=== PATIENT | female | born 1935 | race Caucasian/White ===

== ENCOUNTER 2016-07-02 12:30 | Emergency (ER) | payer BC, OTHER ==
[~2016-07-02] VITALS: Ht 157.5 cm; Wt 73.6 kg
[~2016-07-02 12:30] MED LIST: CHOL100027 PO; MULT-506 PO; TIMO0.2527 OPB
[2016-07-02 12:40] VITALS: Ht 157.5 cm; Wt 73.6 kg
[2016-07-02] MEDS ORDERED: SODIUM CHLORIDE 0.9% 1000ML 1,000 ML IV STA ×2 (13:05)
--- NOTE | 2016-07-02 13:18 | DIAGNOSTIC IMAGING REPORT ---
CHEST ONE VIEW PORTABLE CLINICAL HISTORY: Altered mental status. Weakness. COMPARISON STUDY: 03/23/2014 FINDINGS: The cardiac and mediastinal contours are normal. There is no evidence of focal pulmonary consolidation. There is no evidence of failure. No pleural effusions are visualized.[ IMPRESSION: No active disease in the chest. Electronically signed by: Edward Gilliam M.D. 07/02/2016 1:16 PM Dictated Date/Time: 07/02/2016 1:15 PM
[2016-07-02 14:01] LABS: BASO % 0.1 %; BASO ABS # 0.01 K/uL (0-0.2); COMPLETE YES; EOS % 0.3 %; HEMATOCRIT 42.3 % (37-47); IG% 0.3 %; LYMPH % 10.9 %; LYMPH ABS # 0.87 K/uL (1.2-3.4); MEAN CELL VOLUME 93.8 fL (80-100); MEAN CORPUSCULAR HEMOGLOBIN 31.3 pg (25-34); MEAN CORPUSCULAR HGB CONC 33.3 g/dl (32-36); MEAN PLATELET VOLUME 9.1 fL (7.4-10.4); MONO % 7.7 %; NEUT % 80.7 %; PLATELET COUNT 297 K/uL (130-400); RED BLOOD COUNT 4.51 M/uL (4.2-5.4); WHITE BLOOD COUNT 7.95 K/uL (4.8-10.8)
[2016-07-02] MEDS ORDERED: TIMO10TA2 PO (14:01)
[2016-07-02 14:24] LABS: ALB/GLOB RATIO 0.9 (0.9-2); ALT/SGPT 14 U/L (12-78); AST/SGOT 12 U/L (15-37); BLOOD UREA NITROGEN 8 mg/dl (7-18); BUN/CREATININE RATIO 11.8 (10-20); CARBON DIOXIDE 31 mmol/L (21-32); CHLORIDE 105 mmol/L (98-107); CREATININE 0.66 mg/dl (0.60-1.20); GLUCOSE 120 mg/dl (70-99); MAGNESIUM 2.5 mg/dl (1.8-2.4); POTASSIUM 3.7 mmol/L (3.5-5.1); SODIUM 141 mmol/L (136-145)
[2016-07-02 14:35] LABS: ALKALINE PHOSPHATASE 45 U/L (45-117); THYROID STIMULATING HORMONE 0.669 uIu/ml (0.300-4.500)
--- NOTE | 2016-07-02 15:19 | EMERGENCY ROOM VISIT NOTE ---
History Report prepared by Jaden: Amita Ruiz Under the Supervision of: Dr. Neymar Arizmendi M.D. First contact with patient: 12:59 Chief Complaint: WEAKNESS Stated Complaint: WEAKNESSS,TREMORS,MUSCLE PAIN, (GETTING WORSE) Nursing Triage Summary: pt granddaughter states, pt hasn't been eating and drinking regularly, also feels that she is weakner than normal.pt states she eats just not regular meals denies dizziness or falls. History of Present Illness The patient is a 80 year old female who presents to the Emergency Room with complaints of worsening generalized weakness that started this morning. The patient's granddaughter checked on her this morning and reports that the patient was complaining of weakness in her arms and legs along with pain that made it difficult for her to get up. The patient did not experience any significant one-sided weakness, but her son states that her left arm is typically weaker than her right because of a previous shoulder surgery. The patient denies fevers, cough, chest pain, shortness of breath, abdominal pain, vomiting, any pain or burning with urination, and diarrhea. The patient's granddaughter states that there has been an ongoing problem with the patient where she does not want to eat or drink. The patient states that she is not hungry or thirsty. The patient's son adds that he thinks that she is dehydrated. The patient's son also adds that the patient has a history of a heart murmur. Source of History: patient, family (granddaughter, son) Onset: this morning Position: other (global) Quality: other (generalized weakness) Timing: worsening Associated Symptoms: No SOB, No abdominal pain, No chest pain, No cough, No diarrhea, No fevers, No urinary symptoms, No vomiting Note: generalized pain Review of Systems See HPI for pertinent positives & negatives. A total of 10 systems reviewed and were otherwise negative. Past Medical & Surgical Medical Problems: (1) Hemothorax, right (2) Hemothorax, traumatic (3) Leg swelling (4) Pneumonia (5) Rib fracture Surgical Problems: (1) Hx of rotator cuff surgery Family History No pertinent family history Social History Smoking Status: Never Smoker Alcohol Use: none Drug Use: none Marital Status: Housing Status: lives with family Occupation Status: retired Current/Historical Medications Scheduled Cholecalciferol (Vitamin D 1000 Unit), 1,000 INTER.UNIT PO QAM Multivitamin (Multivitamin), 1 TAB PO QAM Miscellaneous Medications Timolol (Blocadren), 10 MG PO Allergies Coded Allergies: Sulfa Drugs (Verified Allergy, Unknown, 07/02/16) Physical Exam Vital Signs Date Time Temp Pulse Resp B/P Pulse Ox O2 Delivery O2 Flow Rate FiO2 07/02/16 17:45 36.8 78 18 152/76 98 07/02/16 15:21 82 18 159/62 97 Room Air 07/02/16 14:09 81 18 134/62 96 Room Air 07/02/16 12:40 36.8 80 20 165/73 96 Room Air Physical Exam GENERAL: Patient is in no acute distress. HEENT: No acute trauma, normocephalic atraumatic, mucous membranes moist, no nasal congestion, no scleral icterus. NECK: No stridor, no adenopathy, no meningismus, trachea is midline. LUNGS: Clear to auscultation bilaterally, no wheeze, no rhonchi, breath sounds equal. HEART: Grade 3/6 systolic murmur, regular rate and rhythm. ABDOMEN: Soft, nontender, bowel sounds positive, no hernias, no peritonitis. EXTREMITIES: No cyanosis or edema, full range of motion of all the joints without pain or difficulty, no signs for acute trauma. NEUROLOGIC: Oriented x 3, no acute motor or sensory deficits, no focal weakness , tremor noted, no pronator drift or cerebellar dysfunction, no speech slur or facial droop. SKIN: No rash, no jaundice, no diaphoresis. Medical Decision & Procedures ER Provider Diagnostic Interpretation: X-ray results as stated below per interpretation by me and the radiologist: CHEST ONE VIEW PORTABLE IMPRESSION: No active disease in the chest. Electronically signed by: Edward Gilliam M.D. 07/02/2016 1:16 PM Dictated Date/Time: 07/02/2016 1:15 PM Laboratory Results 07/02/16 13:25 Red Blood Count 4.51, Mean Corpuscular Volume 93.8, Mean Corpuscular Hemoglobin 31.3, Mean Corpuscular Hemoglobin Concent 33.3, Mean Platelet Volume 9.1, Neutrophils (%) (Auto) 80.7, Lymphocytes (%) (Auto) 10.9, Monocytes (%) (Auto) 7.7, Eosinophils (%) (Auto) 0.3, Basophils (%) (Auto) 0.1, Neutrophils # (Auto) 6.42, Lymphocytes # (Auto) 0.87, Monocytes # (Auto) 0.61, Eosinophils # (Auto) 0.02, Basophils # (Auto) 0.01 07/02/16 13:25 Test 07/02/16 13:25 07/02/16 15:25 White Blood Count 7.95 K/uL (4.8-10.8) Red Blood Count 4.51 M/uL (4.2-5.4) Hemoglobin 14.1 g/dL (12.0-16.0) Hematocrit 42.3 % (37-47) Mean Corpuscular Volume 93.8 fL (80-100) Mean Corpuscular Hemoglobin 31.3 pg (25-34) Mean Corpuscular Hemoglobin Concent 33.3 g/dl (32-36) Platelet Count 297 K/uL (130-400) Mean Platelet Volume 9.1 fL (7.4-10.4) Neutrophils (%) (Auto) 80.7 % Lymphocytes (%) (Auto) 10.9 % Monocytes (%) (Auto) 7.7 % Eosinophils (%) (Auto) 0.3 % Basophils (%) (Auto) 0.1 % Neutrophils # (Auto) 6.42 K/uL (1.4-6.5) Lymphocytes # (Auto) 0.87 K/uL (1.2-3.4) Monocytes # (Auto) 0.61 K/uL (0.11-0.59) Eosinophils # (Auto) 0.02 K/uL (0-0.5) Basophils # (Auto) 0.01 K/uL (0-0.2) RDW Standard Deviation 46.5 fL (36.4-46.3) RDW Coefficient of Variation 13.5 % (11.5-14.5) Immature Granulocyte % (Auto) 0.3 % Immature Granulocyte # (Auto) 0.02 K/uL (0.00-0.02) Anion Gap 5.0 mmol/L (3-11) Est Creatinine Clear Calc Drug Dose 64.9 ml/min Estimated GFR () 97.4 Estimated GFR (Non- 84.0 BUN/Creatinine Ratio 11.8 (10-20) Calcium Level 9.0 mg/dl (8.5-10.1) Magnesium Level 2.5 mg/dl (1.8-2.4) Total Bilirubin 0.5 mg/dl (0.2-1) Aspartate Amino Transf (AST/SGOT) 12 U/L (15-37) Alanine Aminotransferase (ALT/SGPT) 14 U/L (12-78) Alkaline Phosphatase 45 U/L (45-117) Total Creatine Kinase 45 U/L (26-192) Troponin I < 0.015 ng/ml (0-0.045) Total Protein 7.4 gm/dl (6.4-8.2) Albumin 3.5 gm/dl (3.4-5.0) Globulin 3.9 gm/dl (2.5-4.0) Albumin/Globulin Ratio 0.9 (0.9-2) Thyroid Stimulating Hormone (TSH) 0.669 uIu/ml (0.300-4.500) Urine Color YELLOW Urine Appearance CLEAR (CLEAR) Urine pH 7.5 (4.5-7.5) Urine Specific [place] 1.008 (1.000-1.030) Urine Protein NEG (NEG) Urine Glucose (UA) NEG (NEG) Urine Ketones NEG (NEG) Urine Occult Blood NEG (NEG) Urine Nitrite NEG (NEG) Urine Bilirubin NEG (NEG) Urine Urobilinogen NEG (NEG) Urine Leukocyte Esterase MODERATE (NEG) Urine WBC (Auto) 1-5 /hpf (0-5) Urine RBC (Auto) 0-4 /hpf (0-4) Urine Hyaline Casts (Auto) 0 /lpf (0-5) Urine Epithelial Cells (Auto) 10-20 /lpf (0-5) Urine Bacteria (Auto) NEG (NEG) Laboratory results reviewed by me. Medications Administered Medications (Trade) Dose Ordered Sig/Rosa M Route Start Time Stop Time Status Last Admin Dose Admin Sodium Chloride 1,000 ml @ 999 mls/hr Q1H1M STAT IV 07/02/16 13:05 07/02/16 14:05 DC 07/02/16 13:25 999 MLS/HR Sodium Chloride 1,000 ml @ 200 mls/hr Q5H STAT IV 07/02/16 13:05 07/02/16 18:08 DC 07/02/16 14:08 200 MLS/HR Sodium Chloride (Nss 500ml) 500 ml @ 999 mls/hr Q31M STAT IV 07/02/16 15:52 07/02/16 16:22 DC 07/02/16 15:52 999 MLS/HR ECG Indication: weakness Rate (beats per minute): 76 Rhythm: normal sinus Findings: no acute ischemic change, no ectopy, other (LVH) ED Course 1300: The patient was evaluated in room B3. A complete history and physical exam was performed. 1305: Ordered Sodium Chloride 1000 ml @ 200 mls/hr IV, Sodium Chloride 1000 ml @ 999 mls/hr IV 1522: I reassessed the patient. I also updated the patient and her family. 1552: Ordered Sodium Chloride 500 ml @ 999 mls/hr IV 1701: Reevaluated the patient. Discussed results and discharge instructions: she verbalized understanding and agreement. The patient is ready for discharge. Medical Decision Differential diagnoses considered include dehydration, electrolyte imbalance, anemia, stroke, UTI. There is no leukocytosis or concerning anemia. No significant electrolyte abnormality, kidney failure or hepatitis. The patient appears to be in a euthyroid state. Urinalysis does not show any obvious infection, urine culture is pending. EKG shows a normal sinus rhythm with LVH, no acute ischemia. Cardiac enzyme testing times one is not consistent with acute cardiac injury. The patient presents with weakness, the weakness is generalized. There were no findings of stroke by exam, she was not febrile or toxic. The patient received IV saline, she is doing markedly better. She does feel comfortable with discharge, the family is comfortable as well. Patient was encouraged to stay better hydrated and to follow with her doctor later this week. Impression Primary Impression: Weakness Additional Impression: Dehydration Scribe Attestation The scribe's documentation has been prepared under my direction and personally reviewed by me in its entirety. I confirm that the note above accurately reflects all work, treatment, procedures, and medical decision making performed by me. Departure Information Dispostion Home / Self-Care Referrals No Doctor, Assigned (PCP) Forms HOME CARE DOCUMENTATION FORM, IMPORTANT VISIT INFORMATION Patient Instructions My [facility] Additional Instructions stay well hydrated see yohannes faye for a recheck this week return if worsening lab testing was ok today Problem Qualifiers
[2016-07-02] MEDS ORDERED: SODIUM CHLORIDE 0.9% 500ML 500 ML IV STA (15:52)
[2016-07-02 16:34] LABS: URINE APPEARANCE CLEAR (CLEAR); URINE BILIRUBIN NEG (NEG); URINE COLOR YELLOW; URINE NITRITE NEG (NEG); URINE PH 7.5 (4.5-7.5); URINE SPECIFIC GRAVITY 1.008 (1.000-1.030); UROBILINOGEN NEG (NEG); ZZUR CULT IF INDIC CLEAN CATCH NO
[2016-07-02 16:45] LABS: MANUAL MICROSCOPIC REQUIRED? NO; REVIEW REQ? NO
[2016-07-02 17:45] VITALS: BP 152/76; PULSE 78; TEMP 36.8; O2SAT 98
== END 2016-07-02 17:46 | disposition home or self-care (01) ==
LOC: C.EDB 12:32
DX: R53.1 Weakness (principal); E86.0 Dehydration; Z87.81 Personal history of (healed) traumatic fracture; Z87.828 Personal history of other (healed) physical injury and trauma; Z98.890 Other specified postprocedural states; Z88.2 Allergy status to sulfonamides

== ENCOUNTER → 2017-03-13 | Outpatient (CLI) | payer BC ==
[~2017-03-13] MED LIST changes: -TIMO0.2527 OPB; +TIMO10TA2 PO
[2017-03-13 17:39] LABS: BASO % 0.3 %; BASO ABS # 0.02 K/uL (0-0.2); EOS % 1.7 %; EOS ABS # 0.11 K/uL (0-0.5); HEMOGLOBIN 14.7 g/dL (12.0-16.0); IG# 0.01 K/uL (0.00-0.02); LYMPH % 21.5 %; LYMPH ABS # 1.43 K/uL (1.2-3.4); MEAN CELL VOLUME 93.6 fL (80-100); MEAN CORPUSCULAR HEMOGLOBIN 30.6 pg (25-34); MEAN CORPUSCULAR HGB CONC 32.7 g/dl (32-36); MEAN PLATELET VOLUME 9.8 fL (7.4-10.4); NEUT % 67.3 %; NEUT ABS # 4.47 K/uL (1.4-6.5); PLATELET COUNT 288 K/uL (130-400); RED CELL DISTRIBUTION WIDTH CV 13.8 % (11.5-14.5); RED CELL DISTRIBUTION WIDTH SD 47.3 fL (36.4-46.3); WHITE BLOOD COUNT 6.64 K/uL (4.8-10.8)
[2017-03-13 19:21] LABS: ALBUMIN 3.9 gm/dl (3.4-5.0); ALKALINE PHOSPHATASE 41 U/L (45-117); AST/SGOT 20 U/L (15-37); BLOOD UREA NITROGEN 7 mg/dl (7-18); CALCIUM 9.5 mg/dl (8.5-10.1); CARBON DIOXIDE 28 mmol/L (21-32); CREATININE 0.57 mg/dl (0.60-1.20); GLUCOSE 82 mg/dl (70-99); SODIUM 138 mmol/L (136-145); TOTAL PROTEIN 8.1 gm/dl (6.4-8.2)
[2017-03-13 19:29] LABS: ALT/SGPT 19 U/L (12-78)
== END | disposition home or self-care (01) ==
LOC: C.LABPVFM 12:20
PROVIDERS: ATTEND Nurse Practitioner Family
DX: I35.8 Other nonrheumatic aortic valve disorders (principal); R60.0 Localized edema; R41.3 Other amnesia

== ENCOUNTER 2020-01-23 18:01 | Observation (INO) ==
[2020-01-23] MEDS ORDERED: SODIUM CHLORIDE 0.9% 1000ML 500 ML IV ONE (18:25)
--- NOTE | 2020-01-23 18:31 | Emergency Department Note ---
History of Present Illness General Chief complaint: Urinary Symptoms Stated complaint: ALOC, WEAKNESS Time Seen by Provider: 01/23/20 18:17 Source: patient, family (Son who I talked to both on the phone and at bedside he arrived), EMS, RN notes reviewed and old records reviewed Mode of arrival: EMS Limitations: no limitations History of Present Illness This patient is brought in by EMS from [facility] after apparently being more confused and was cool and clammy. She has a history of a recent ESBL. She was seen here 9 days ago and given a dose of fosfomycin. The patient has baseline dementia so it is difficult to get any history although she denies any complaints. She is alert to person but not place or date. She denies chest pain or shortness of breath or cough or urinary symptoms or abdominal pain. She does follow commands. But definitely has some confusion which appears to be baseline. I talked to the her son at length who arrived and was at the bedside. He tells me she was here on 01 13 and [facility] she is actually been on quarantine and away from the general population due to her recent hospital visit. She has had no cough or shortness of breath or any Covid-like symptoms. Home Medications Home Medications Medication Instructions Recorded Confirmed Type melatonin 3 mg tablet 3 mg PO HS 08/17/18 01/23/20 History acetaminophen 325 mg tablet 650 mg PO TID #60 tab MDD 3 GMS 02/26/19 01/23/20 History APAP/24 HOURS donepezil 10 mg PO HS 01/14/20 01/23/20 History quetiapine 100 mg PO HS 01/14/20 01/23/20 History acetaminophen 325 mg PO Q4H PRN MDD 3 GMS 01/23/20 01/23/20 History APAP/24 HOURS cyanocobalamin (vitamin B-12) 2,000 mcg PO DAILY 01/23/20 01/23/20 History [Vitamin B-12] quetiapine 100 mg PO QAM 01/23/20 01/23/20 History sertraline 100 mg PO DAILY 01/23/20 01/23/20 History trazodone 50 mg PO HS 01/23/20 01/23/20 History Allergies Allergy/AdvReac Type Severity Reaction Status Date / Time Sulfa (Sulfonamide Allergy Unknown Unknown Verified 01/23/20 21:02 Antibiotics) Past Med/Surg History Medical History Achilles tendonitis Anxiety Stable/controlled. continue with current management. Aortic stenosis Aortic valve sclerosis Bilateral edema of lower extremity Dementia with behavioral disturbance Stable/controlled. Continue with current management. Depression Controlled/stable at this time. no SI/HI. Pt tolerating meds well without significant side effects. Continue with current management. Esophageal reflux Glaucoma Hemothorax, right Hemothorax, traumatic Knee arthropathy Leg swelling LVH (left ventricular hypertrophy) Osteopenia Osteoporosis Plantar fasciitis, left Pneumonia Rib fracture Senile dementia Sleep disturbances Solitary pulmonary nodule Urge incontinence of urine Vitamin D deficiency Surgical History History of arthroplasty of right knee Hx of rotator cuff surgery Family History Father Unknown family medical history Social History Smoking Status: Never smoker Preferred Language: Croatian Current Living Situation: Personal Care Facility Current Living Situation Comment: [facility] at [facility] Feels Safe at Home: Yes Review of Systems Unobtainable due to cognitive status Physical Exam Vital Signs Vital Signs - 24 hr 01/23/20 17:56 01/23/20 18:26 01/23/20 19:26 Temperature 36.8 C Temperature Source Oral Pulse Rate 74 Pulse Rate [Right Finger] 71 Pulse Rhythm Regular Pulse Rhythm [Right Finger] Regular Pulse Strength Normal Respiratory Rate 20 18 Respiratory Effort / Characteristics Non-Labored Spontaneous Normal for Patient Respiratory Depth Normal Respiratory Pattern Regular Blood Pressure 163/71 H Blood Pressure [Right Arm] 159/95 H Blood Pressure Mean 101 Blood Pressure Mean [Right Arm] 116 Blood Pressure Position Lying Blood Pressure Position [Right Arm] Pulse Oximetry 98 98 98 Oxygen Delivery Method Room Air Room Air Room Air Sepsis Recent Fever Within 48 Hours No Sepsis New/Unexplained Change in Mental Status N/A Sepsis Action Taken by Nursing No Action Required 01/23/20 20:17 01/23/20 21:39 Temperature Temperature Source Pulse Rate Pulse Rate [Right Finger] 76 67 Pulse Rhythm Pulse Rhythm [Right Finger] Regular Regular Pulse Strength Respiratory Rate 20 20 Respiratory Effort / Characteristics Non-Labored Non-Labored Respiratory Depth Normal Normal Respiratory Pattern Blood Pressure Blood Pressure [Right Arm] 136/73 137/70 Blood Pressure Mean Blood Pressure Mean [Right Arm] 94 92 Blood Pressure Position Blood Pressure Position [Right Arm] Lying Pulse Oximetry 96 97 Oxygen Delivery Method Room Air Room Air Sepsis Recent Fever Within 48 Hours Sepsis New/Unexplained Change in Mental Status Sepsis Action Taken by Nursing General: Well developed well nourished older female who has baseline dementia but appears awake and alert follows commands is alert to person only. In no acute distress, breathing comfortably on room air. Normal speech HEENT: Normal cephalic atraumatic. Pupils are equal round and reactive to light. Extraocular movements are intact. Oropharynx is pink with moist mucous membranes. No swelling of the mouth lips or tongue. Neck: Supple with a midline trachea. No meningeal signs or stiffness, no JVD or bruits. No Stridor. Chest: Clear to auscultation bilaterally. No wheezes or rhonchi. No increased work of breathing. Heart: Regular rate and rhythm. There is a 3-6 systolic murmur. Abdomen: Soft nontender, nondistended without rebound guarding or rigidity. Extremities: No cyanosis clubbing or edema. No calf tenderness or assymetry Spine/Back. Non tender to palpation. No CVA tenderness Skin: Good turgor without rashes. Neurologic exam: Cranial nerves two through 12 are intact. Motor and sensation are intact and symmetrical throughout. Course Administered Medications Discontinued Medications Sodium Chloride (Nss 1000ml) 500 mls @ 999 mls/hr IV .Q31M ONE Stop: 01/23/20 18:55 Last Admin: 01/23/20 19:34 Dose: 999 mls/hr Documented by: [id number] Sodium Chloride (Nss 1000ml) 1,000 mls @ 999 mls/hr IV .Q1H1M ONE Stop: 01/23/20 20:31 Last Admin: 01/23/20 19:35 Dose: 999 mls/hr Documented by: [id number] Piperacillin Sod/Tazobactam Sod (Zosyn) 4.5 gm in 120 mls @ 240 mls/hr IV NOW ONE Stop: 01/23/20 21:06 Last Admin: 01/23/20 20:52 Dose: 240 mls/hr Documented by: [id number] Critical Care Time Critical Care Time: Yes Total Critical Care Time: 30 Due to the altered mental status, concern for sepsis, need for IV fluids IV antibiotics, discussion with the family and frequent reassessment, I have personally spent greater than 30 minutes of critical care time in the direct management of this patient. This includes bedside care, interpretation of diagnostic studies, and testing, discussion with consultants, patient, and family members, and other required patient management activities. This 30 minutes is in excess of all separately billable procedures. Medical Decision Making Differential Diagnosis Sepsis, UTI, dehydration, Covid, electrolyte or metabolic abnormalities, CVA. Medical Records Attestation: I reviewed the patient's medical records. Home Medications Current Medication List: was personally reviewed by me Laboratory Data Attestation: I reviewed the patient's lab results. Result diagrams: 01/23/20 18:33 01/23/20 18:33 Lab Results 01/23/20 01/23/20 01/23/20 Range/Units 18:33 18:33 18:33 WBC 11.34 H (4.8-10.8) K/uL RBC 4.81 (4.2-5.4) M/uL Hgb 15.3 (12.0-16.0) g/dL Hct 46.0 (37-47) % MCV 95.6 (80-100) fL MCH 31.8 (25-34) pg MCHC 33.3 (32-36) g/dL RDW Std Deviation 45.1 (36.4-46.3) fL RDW Coeff of Petr 13.0 (11.5-14.5) % Plt Count 308 (130-400) K/uL MPV 10.1 (7.4-10.4) fL Immature Gran % (Auto) 0.2 % Neut % (Auto) 89.1 % Lymph % (Auto) 8.3 % [place] % (Auto) 2.3 % Eos % (Auto) 0.0 % Baso % (Auto) 0.1 % Neut # (Auto) 10.11 H (1.4-6.5) K/uL Lymph # (Auto) 0.94 L (1.2-3.4) K/uL [place] # (Auto) 0.26 (0.11-0.59) K/uL Eos # (Auto) 0.00 (0-0.5) K/uL Baso # (Auto) 0.01 (0-0.2) K/uL Immature Gran # (Auto) 0.02 (0.00-0.02) K/uL PT 11.0 (9.0-12.0) Seconds INR 1.0 (0.9-1.1) APTT 26.0 (21.0-31.0) Seconds PTT Ratio 0.9 Sodium (136-145) mmol/L Potassium (3.5-5.1) mmol/L Chloride (98-107) mmol/L Carbon Dioxide (21-32) mmol/L Anion Gap (3-11) BUN (7-18) mg/dl Creatinine (0.6-1.2) mg/dl Est Cr Clr Drug Dosing ml/min Est GFR ( Amer) Est GFR (Non-Af Amer) BUN/Creatinine Ratio (10-20) Glucose (70-99) mg/dl Lactate (0.4-2.0) mmol/L Calcium (8.5-10.1) mg/dl Magnesium (1.8-2.4) mg/dl Total Bilirubin (0.2-1) mg/dl AST (15-37) U/L ALT (12-78) U/L Alkaline Phosphatase (45-117) U/L Troponin I (0-0.045) ng/ml Total Protein (6.4-8.2) gm/dl Albumin (3.4-5.0) gm/dl Globulin (2.5-4.0) gm/dl Albumin/Globulin Ratio (0.9-2) Procalcitonin < 0.05 (0-0.5) ng/ml Urine Color Urine Appearance (Clear) Urine pH (4.5-7.5) Ur Specific Ashley (1.000-1.030) Urine Protein (Negative) Urine Glucose (UA) (Negative) Urine Ketones (Negative) Urine Blood (Negative) Urine Nitrite (Negative) Urine Bilirubin (Negative) Urine Urobilinogen (Negative) Ur Leukocyte Esterase (Negative) Urine WBC (Auto) (0-5) /hpf Urine RBC (Auto) (0-4) /hpf U Hyaline Cast (Auto) (0-5) /lpf U Epithel Cells (Auto) (0-5) /lpf Urine Bacteria (Auto) (Negative) 1101/23/20 01/23/20 Range/Units 18:33 18:53 19:25 WBC (4.8-10.8) K/uL RBC (4.2-5.4) M/uL Hgb (12.0-16.0) g/dL Hct (37-47) % MCV (80-100) fL MCH (25-34) pg MCHC (32-36) g/dL RDW Std Deviation (36.4-46.3) fL RDW Coeff of Petr (11.5-14.5) % Plt Count (130-400) K/uL MPV (7.4-10.4) fL Immature Gran % (Auto) % Neut % (Auto) % Lymph % (Auto) % [place] % (Auto) % Eos % (Auto) % Baso % (Auto) % Neut # (Auto) (1.4-6.5) K/uL Lymph # (Auto) (1.2-3.4) K/uL [place] # (Auto) (0.11-0.59) K/uL Eos # (Auto) (0-0.5) K/uL Baso # (Auto) (0-0.2) K/uL Immature Gran # (Auto) (0.00-0.02) K/uL PT (9.0-12.0) Seconds INR (0.9-1.1) APTT (21.0-31.0) Seconds PTT Ratio Sodium 139 (136-145) mmol/L Potassium 3.7 (3.5-5.1) mmol/L Chloride 109 H (98-107) mmol/L Carbon Dioxide 26 (21-32) mmol/L Anion Gap 4.0 (3-11) BUN 9 (7-18) mg/dl Creatinine 0.70 (0.6-1.2) mg/dl Est Cr Clr Drug Dosing 57.4 ml/min Est GFR ( Amer) 92.9 Est GFR (Non-Af Amer) 80.1 BUN/Creatinine Ratio 12.9 (10-20) Glucose 135 H (70-99) mg/dl Lactate 2.3 H* (0.4-2.0) mmol/L Calcium 9.4 (8.5-10.1) mg/dl Magnesium 2.4 (1.8-2.4) mg/dl Total Bilirubin 0.4 (0.2-1) mg/dl AST 19 (15-37) U/L ALT 27 (12-78) U/L Alkaline Phosphatase 48 (45-117) U/L Troponin I < 0.015 (0-0.045) ng/ml Total Protein 8.5 H (6.4-8.2) gm/dl Albumin 4.1 (3.4-5.0) gm/dl Globulin 4.4 H (2.5-4.0) gm/dl Albumin/Globulin Ratio 0.9 (0.9-2) Procalcitonin (0-0.5) ng/ml Urine Color Yellow Urine Appearance Clear (Clear) Urine pH 6.0 (4.5-7.5) Ur Specific Ashley 1.022 (1.000-1.030) Urine Protein Negative (Negative) Urine Glucose (UA) Negative (Negative) Urine Ketones 1+ H (Negative) Urine Blood Negative (Negative) Urine Nitrite Positive A (Negative) Urine Bilirubin Negative (Negative) Urine Urobilinogen Negative (Negative) Ur Leukocyte Esterase 1+ H (Negative) Urine WBC (Auto) 10-30 H (0-5) /hpf Urine RBC (Auto) 0-4 (0-4) /hpf U Hyaline Cast (Auto) 5-10 H (0-5) /lpf U Epithel Cells (Auto) 5-10 H (0-5) /lpf Urine Bacteria (Auto) 4+ H (Negative) Imaging Data Attestation: I personally reviewed and interpreted this imaging study as follows: My Impression: Chest x-rayper my interpretationno acute infiltrate, failure, pneumothorax seen Radiologist's Impression: XR chest 1V portable HISTORY: SEPSIS COMPARISON: Chest 11/28/2017. FINDINGS: There are low lung volumes. No pneumothorax. The heart is mildly enlarged. There is peripheral and bibasilar interstitial thickening most pronounced within the left lung base. This is likely chronic. No evidence for pulmonary edema. No new focal lung consolidations to suggest pneumonia. IMPRESSION: Cardiomegaly and mild chronic interstitial thickening. No focal lung consolidations to suggest pneumonia. ECG Data Attestation: I personally reviewed and interpreted this ECG as follows: Indication: + altered mental status Rate (beats per minute): 67 Rhythm: + normal sinus ECG [place]: + Normal ECG ST segments: + Normal ST segments ECG Findings: + LVH Comparison ECG Date: from (12/06/17) Change: the following changes noted (t waves anterior improved) MDM Narrative This patient is brought in by EMS after apparently having altered level co nscious being cold clammy she has stable vital signs and baseline dementia. She has no focal neurologic deficits on my exam besides having some baseline dementia. Reviewing her record she has a recent ESBL. A full sepsis type work- up was obtained she was given a IV fluid bolus she was placed on a hunter EKG chest x-ray urinalysis and culture as well as blood cultures lactic acid were obtained. She was reassessed frequently. There is no reported exposure to Covid or cough or respiratory symptoms. Her white count is mildly elevated lactic acid is also mildly elevated. She did receive IV fluids. She has no significant electrolyte or metabolic abnormalities. She has nothing to suggest liver, gallbladder, or pancreas disease. Her chest x-ray does not suggest pneumonia or CHF. No pneumothorax. EKG does not suggest cardiac disease nor do her symptoms. Her troponin was negative. Her procalcitonin was also negative which would also go against a bacterial infection. Her lactic acid was mildly elevated she has received fluid resuscitation I added a second liter IV. Her urinalysis is very suspicious for UTI, she has a history of ESBL judging from the previous cultures. I did give her Zosyn which it was sensitive to 4.5 g IV. I talked to her son and he agrees with the plan I have talked with Dr. Barnett and the [facility] team will be admitting her for sepsis altered mental status and resistant E. coli UTI suspected/ Continuous cardiac monitoring: An order was placed in the EMR for continuous cardiac monitoring. She was found to be in normal sinus rhythm with a pulse of 67. Impression & Plan Sepsis, Altered mental status, Dementia, Acute UTI (urinary tract infection), E levated lactic acid level Discharge Plan Visit Data Chief Complaint: Urinary Symptoms Stated Complaint: ALOC, WEAKNESS ED Provider: Noel Morgan Discharge Problem: Sepsis, Altered mental status, Dementia, Acute UTI (urinary tract infection), Elevated lactic acid level Patient Disposition: Admitted As Inpatient Forms Stand Alone Forms: My [facility] Prescriptions Prescriptions: No Action acetaminophen 325 mg tablet 650 mg PO TID MDD 3 GMS APAP/24 HOURS Qty: 60 RF: 0 melatonin 3 mg tablet 3 mg PO HS RF: 0 donepezil 10 mg tablet 10 mg PO HS RF: 0 quetiapine 100 mg tablet 100 mg PO HS RF: 0 quetiapine 25 mg tablet 100 mg PO QAM RF: 0 cyanocobalamin (vitamin B-12) [Vitamin B-12] 1,000 mcg Tablet 2,000 mcg PO DAILY RF: 0 sertraline 50 mg tablet 100 mg PO DAILY RF: 0 trazodone 50 mg tablet 50 mg PO HS RF: 0 acetaminophen 325 mg Tablet 325 mg PO Q4H MDD 3 GMS APAP/24 HOURS PRN (Reason: Pain, Mild) RF: 0 Referrals Referrals: Vandana Amos MD [Primary Care Provider] - Discharge Problem: Sepsis Qualifiers: Sepsis type: sepsis due to unspecified organism Sepsis acute organ dysfunction status: unspecified Qualified Code(s): A41.9 - Sepsis, unspecified organism Altered mental status Qualifiers: Altered mental status type: unspecified Qualified Code(s): R41.82 - Altered mental status, unspecified Dementia Qualifiers: Dementia type: unspecified type Dementia behavioral disturbance: with behavioral disturbance Qualified Code(s): F03.91 - Unspecified dementia with behavioral disturbance
[2020-01-23 18:43] LABS: Basophils # (auto) 0.01 K/uL (0-0.2); Basophils % (auto) 0.1 %; Hemoglobin 15.3 g/dL (12.0-16.0); Immature Granulocytes # (auto) 0.02 K/uL (0.00-0.02); Immature Granulocytes % (auto) 0.2 %; Lymphocytes # (auto) 0.94 K/uL (1.2-3.4); Lymphocytes % (auto) 8.3 %; Mean Corpuscular Hemoglobin 31.8 pg (25-34); Mean Corpuscular Hgb Conc 33.3 g/dL (32-36); Mean Corpuscular Volume 95.6 fL (80-100); Mean Platelet Volume 10.1 fL (7.4-10.4); Monocytes # (auto) 0.26 K/uL (0.11-0.59); Monocytes % (auto) 2.3 %; Neutrophils # (auto) 10.11 K/uL (1.4-6.5); Neutrophils % (auto) 89.1 %; Platelet Count 308 K/uL (130-400); RDW Standard Deviation 45.1 fL (36.4-46.3); Red Blood Count 4.81 M/uL (4.2-5.4); White Blood Count 11.34 K/uL (4.8-10.8)
--- NOTE | 2020-01-23 18:56 | XRay Report ---
XR chest 1V portable HISTORY: SEPSIS COMPARISON: Chest 11/28/2017. FINDINGS: There are low lung volumes. No pneumothorax. The heart is mildly enlarged. There is periphe ral and bibasilar interstitial thickening most pronounced within the left lung base. This is likely c hronic. No evidence for pulmonary edema. No new focal lung consolidations to suggest pneumonia. IMPRESSION: Cardiomegaly and mild chronic interstitial thickening. No focal lung consolidations to suggest pneumo toney. ACT 112: Negative or not required by law. Electronically signed by: Ceasar Guerrero M.D. 01/23/2020 6:54 PM
[2020-01-23 19:03] LABS: Alanine Aminotransferase 27 U/L (12-78); Albumin Level 4.1 gm/dl (3.4-5.0); Aspartate Aminotransferase 19 U/L (15-37); BUN Creatinine Ratio 12.9 (10-20); Blood Urea Nitrogen 9 mg/dl (7-18); Calcium 9.4 mg/dl (8.5-10.1); Carbon Dioxide 26 mmol/L (21-32); Chloride 109 mmol/L (98-107); Creatinine Clr Calc Pharmacy 57.4 ml/min; Est GFR (African American) 92.9; Est GFR (Non-African American) 80.1; Glucose 135 mg/dl (70-99); Magnesium 2.4 mg/dl (1.8-2.4); Partial Thromboplastin Ratio 0.9; Potassium 3.7 mmol/L (3.5-5.1); Sodium 139 mmol/L (136-145)
[2020-01-23 19:08] LABS: Albumin Globulin Ratio 0.9 (0.9-2); Alkaline Phosphatase 48 U/L (45-117); Bilirubin,Total 0.4 mg/dl (0.2-1); Globulin 4.4 gm/dl (2.5-4.0); Total Protein 8.5 gm/dl (6.4-8.2); Troponin I < 0.015 ng/ml (0-0.045)
[2020-01-23] MEDS ORDERED: SODIUM CHLORIDE 0.9% 1000ML 1,000 ML IV ONE (19:31)
[2020-01-23 19:52] LABS: Appearance Urine Clear (Clear); Bacteria Urine Automated 4+ (Negative); Bilirubin Urine Negative (Negative); Blood Urine Negative (Negative); Color Urine Yellow; Glucose Urine UA Negative (Negative); Ketones Urine 1+ (Negative); Leukocyte Esterase Urine 1+ (Negative); Nitrite Urine Positive (Negative); Protein Urine Negative (Negative); RBC Urine Automated 0-4 /hpf (0-4); Specific Gravity Urine 1.022 (1.000-1.030); Urobilinogen Urine Negative (Negative)
[2020-01-23] MEDS ORDERED: PIPERACILL/TAZOBAC CONSULT ACTIVE PRN (20:37)
[2020-01-23] MEDS ORDERED: PIPERACILLIN/TAZOBACTAM 4.5 GM/120 ML BAG IV ONE (20:37)
--- NOTE | 2020-01-23 21:48 | History & Physical Report ---
Date of Service January 23, 2020 Assessment & Plan (1) Urinary tract infection due to extended-spectrum beta lactamase (ESBL) producing Escherichia coli: Pt is an 84yo female with a PMHx of severe dementia, anxiety, depression, insomnia and a Hx of ESBL UTI who was admitted with concern for an unresolving UTI. UTI in the setting of Hx of ESBL infections -Pt was seen on 01/11 with an ESBL UTI, treated with one dose of fosfamycin -Per her son, [facility] staff notes they found pt "slumped over" at table today; not at baseline -Pt with significant dementia and cannot state whether or not she has urinary symptoms -afebrile, nontachycardic, BP within normal limits -WBC elevated >14020, lactate mildly elevated, procalcitonin WNL -UA with nitrites, leukocyte esterase, 4+ bacteria -Urine Cx pending, Blood Cx x2 pending -s/p one dose Zosyn in ED, fluid boluses -given sensitivities of last urine Cx 01/11 which grew ESBL E. coli, will treat with once daily Ertapenem Dementia -continue home donepezil 10mg Insomnia -continue home melatonin 3mg and trazodone 50mg Depression -continue home trazodone 50mg, quetiapine 100mg BID, sertraline 100mg FEN/GI: Regular diet CODE STATUS: DNR/DNI per discussion with her son DVT prophylaxis: Lovenox SQ Dispo: Med/Surg (2) Dementia: (3) Insomnia: (4) Depression: (5) Anxiety: History of Present Illness Primary Care Provider: Vandana Amos MD Pt is an 84yo female with a PMHx of severe dementia, anxiety, depression, insomnia and a Hx of ESBL UTI who was admitted with concern for an unresolving UTI. Son is present at the bedside and provides most of the history. Son states that mom was treated in the ED a few weeks ago for a UTI with an "oral pill". States he was contacted by [facility] where the patient resides as today they found her slumped over at the table. He states that with her recurrent UTIs and severe dementia, she is usually not at baseline. States they did not report fevers, but felt that she was sometimes cold and clammy. States his mom never smoked and has a family Hx of dementia. 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 Allergies Allergy/AdvReac Type Severity Reaction Status Date / Time Sulfa (Sulfonamide Allergy Unknown Unknown Verified 01/23/20 21:02 Antibiotics) Home Medications Home Medications Medication Instructions Recorded Confirmed Type melatonin 3 mg tablet 3 mg PO HS 08/17/18 01/23/20 History acetaminophen 325 mg tablet 650 mg PO TID #60 tab MDD 3 GMS 02/26/19 01/23/20 History APAP/24 HOURS donepezil 10 mg PO HS 01/14/20 01/23/20 History quetiapine 100 mg PO HS 01/14/20 01/23/20 History acetaminophen 325 mg PO Q4H PRN MDD 3 GMS 01/23/20 01/23/20 History APAP/24 HOURS cyanocobalamin (vitamin B-12) 2,000 mcg PO DAILY 01/23/20 01/23/20 History [Vitamin B-12] quetiapine 100 mg PO QAM 01/23/20 01/23/20 History sertraline 100 mg PO DAILY 01/23/20 01/23/20 History trazodone 50 mg PO HS 01/23/20 01/23/20 History Past Med/Surg History Medical History Achilles tendonitis Anxiety Stable/controlled. continue with current management. Aortic stenosis Aortic valve sclerosis Bilateral edema of lower extremity Dementia with behavioral disturbance Stable/controlled. Continue with current management. Depression Controlled/stable at this time. no SI/HI. Pt tolerating meds well without significant side effects. Continue with current management. Esophageal reflux Glaucoma Hemothorax, right Hemothorax, traumatic Knee arthropathy Leg swelling LVH (left ventricular hypertrophy) Osteopenia Osteoporosis Plantar fasciitis, left Pneumonia Rib fracture Senile dementia Sleep disturbances Solitary pulmonary nodule Urge incontinence of urine Vitamin D deficiency Surgical History History of arthroplasty of right knee Hx of rotator cuff surgery Family History Father Unknown family medical history Social History Smoking Status: Never smoker Hx Alcohol Use: No Hx Substance Use: No Preferred Language: Cameroonian Communication Ability: Impaired Communication Ability Comment: Patient has history of dementia. [employer] Accounts Manager Required: No Beliefs That Will Affect Care: None marital status: / Current Living Situation: Assisted Current Living Situation Comment: [facility] Other Information That Helps Us Care for You: No Feels Safe at Home: Yes Safety Concerns: Feels Safe At This Time Assistive Devices: Walker Review of Systems Review of Systems: Unobtainable due to cognitive status Physical Exam Physical Exam: General:Awake, nonverbal, No acute distress laying in bed Skin: No noted rashes or bruises Psych: cannot be determined Neuro: moves extremities HEENT: NC/AT Chest: Nontender to palpation. CV: RRR, Normal s1, s2. blowing murmur appreciated Resp: Breath sounds clear bilaterally, no increased effort of breathing. Abdomen: Soft, nontender, nondistended. No guarding. Extremities: ++ edema in lower extremities bilaterally. Results & Data Results & Data ([facility]) Vital Signs (Past 12 Hours) Vital Signs Temp Pulse Pulse Resp BP BP Pulse Ox 01/23/20 21:39 67 20 137/70 97 01/23/20 20:17 76 20 136/73 96 01/23/20 19:26 71 18 159/95 H 98 01/23/20 18:26 98 01/23/20 17:56 36.8 C 74 20 163/71 H 98 Supervising Physician Co-Signing Physician Notes Attending addendum: I have physically seen this patient, have supervised the medical residents activities, and agree with the H&P unless as otherwise noted. Assessment and Plan: Recurrent ESBL urinary tract infection- Previous infections on 08/18/2019 and 01/12/2020 Patient is difficult historian due to dementia Follow urine culture sensitivity. Follow blood culture and sensitivity IV fluids Ertapenem 1 g IV daily Dementia/insomnia/depression- Continue donepezil 10 mg daily, melatonin 3 mg at bedtime, trazodone 50 mg at bedtime, Seroquel 100 mg p.o. twice daily and sertraline 100 mg daily. Remainder of orders and notations as noted Resident Activity Tracking Resident Involvement: Resident Care Provided Care Provided: Adult [facility] Medicine
[2020-01-23] MEDS ORDERED: ALUMINUM/MAGNESIUM/SIMETH (MAALOX MAX) 30 ML UDC PO PRN (22:49)
[2020-01-23] MEDS ORDERED: ACETAMINOPHEN 500 MG TAB PO PRN (22:49)
[2020-01-23] MEDS: ERTAPENEM SODIUM 1,000 MG in SODIUM CHLORIDE 0.9% 50 ML IV SCH (23:53)
[2020-01-24 06:24] LABS: Basophils # (auto) 0.01 K/uL (0-0.2); Basophils % (auto) 0.1 %; Eosinophils # (auto) 0.01 K/uL (0-0.5); Eosinophils % (auto) 0.1 %; Hematocrit (blood only) 39.3 % (37-47); Immature Granulocytes # (auto) 0.02 K/uL (0.00-0.02); Immature Granulocytes % (auto) 0.2 %; Lymphocytes # (auto) 1.45 K/uL (1.2-3.4); Lymphocytes % (auto) 13.8 %; Mean Corpuscular Hemoglobin 31.6 pg (25-34); Mean Corpuscular Hgb Conc 33.1 g/dL (32-36); Mean Corpuscular Volume 95.6 fL (80-100); Mean Platelet Volume 9.7 fL (7.4-10.4); Monocytes # (auto) 0.95 K/uL (0.11-0.59); Neutrophils # (auto) 8.08 K/uL (1.4-6.5); Neutrophils % (auto) 76.8 %; Platelet Count 261 K/uL (130-400); RDW Coefficient of Variation 13.1 % (11.5-14.5); RDW Standard Deviation 45.9 fL (36.4-46.3); Red Blood Count 4.11 M/uL (4.2-5.4); White Blood Count 10.52 K/uL (4.8-10.8)
[2020-01-24 06:54] LABS: BUN Creatinine Ratio 16.6 (10-20); Calcium 8.3 mg/dl (8.5-10.1); Creatinine Clr Calc Pharmacy 89.2 ml/min; Est GFR (African American) 107.4; Est GFR (Non-African American) 92.7
[2020-01-24 06:55] LABS: Potassium 3.2 mmol/L (3.5-5.1)
[2020-01-24] MEDS: ENOXAPARIN INJ 40 MG/0.4 ML SYR SQ SCH (08:22)
[2020-01-24] MEDS: SERTRALINE HCL 100 MG TABLET PO SCH (08:23)
[2020-01-24] MEDS: QUEtiapine FUMARATE 100 MG TABLET PO SCH ×2 (08:24→20:25)
--- NOTE | 2020-01-24 09:16 | Hospitalist Progress Note ---
Date of Service January 24, 2020 Assessment & Plan (1) Urinary tract infection due to extended-spectrum beta lactamase (ESBL) producing Escherichia coli: Pt is an 84yo female with a PMHx of severe dementia, anxiety, depression, insomnia and a Hx of ESBL UTI who was admitted with concern for an unresolving UTI. UTI in the setting of Hx of ESBL infections -potential that this is asymptomatic bacteruria given the limited correlation of symptoms -Pt with significant dementia and cannot state whether or not she has urinary symptoms -Pt was seen on 01/11 with an ESBL UTI, treated with one dose of fosfamycin -Per her sonAlayna staff notes they found pt "slumped over" at table -afebrile, nontachycardic, BP within normal limits -WBC elevated >[id number], lactate mildly elevated, procalcitonin WNL -UA with nitrites, leukocyte esterase, 4+ bacteria -Urine Cx demonstrating gram negative bacilli -Blood Cx x2 pending -continue with once daily Ertapenem until sensitivities result Dementia -confusion episode that brought her to hospital appears to have been resolved, uncertain if this is in relation to discovered UTI verse in relation to worsening dementia and potential dehydration given mental status. -continue home donepezil 10mg Insomnia -continue home melatonin 3mg and trazodone 50mg Depression -continue home trazodone 50mg, quetiapine 100mg BID, sertraline 100mg (2) Dementia: (3) Insomnia: (4) Depression: (5) Anxiety: Admission and Anticipated Discharge Date Admission Date: January 23, 2020 Supervising Physician Co-Signing Physician Notes I personally examined the patient and verified all lewis points of history and exam, discussed case, and agree with decision making with Dr Gruber. no meaningful HPI or ROS vitals noted nad heent nc at mmm breathing unlabored. questionable suprapubic tenderness. no rashes no pallor or icterus AMS - ?waxing and waning of dementia. ?mild delirium from dehydration vs UTI. definitely not a clear-cut UTI-delirium situation. dr gruber discussed her current status w son and it sounds like she is doing as well as she would on a fairly good day today questionable UTI - w suprapubic tenderness feel obligated to treat, but with her situation it certainly begs the question of asymptomatic bacteriuria. would want her followed closely as outpt, possibly even culture "on a good day" otherwise as above Subjective Patient pleasantly demented this morning, but able to differentiate location of pain responding seemingly appropriately to the location of her pain and indicating via yes or no answers which pain is the worst that she is currently feeling. Extensive discussions had with patient's son who stated that this is about the best her baseline mental status gets. Usually when she endorses any pain and is not with it that much she becomes wildly erratic and combative. Review of Systems Review of Systems: All systems reviewed & are unremarkable except as noted in Subjective Physical Exam Constitutional: well developed and well nourished; no acute distress Eyes: PERRL, conjunctivae normal, anicteric sclerae ENMT: external ear and nose normal, oropharynx normal Respiratory: normal respiratory effort, lungs clear to auscultation Cardiovascular: Rate/Rhythm: regular rate and regular rhythm Heart Sounds: + murmur (systolic ejection murmur heard in all points of auscultation and carotids); no gallop and no cardiac rub Vessels: normal peripheral pulses Gastrointestinal (Abdomen): Inspection/Auscultation: normal bowel sounds Percussion/Palpation: + abdomen tender (suprapubic); + abdomen not soft and no hepatosplenomegaly Musculoskeletal: tenderness to palpation of RLE Psychiatric: Orientation: alert, oriented to person and cooperative; + not oriented to place and + not oriented to time Eye Contact: good eye contact Genitourinary: + CVA tenderness (R>L) Results & Data Results & Data ([facility]) Vital Signs (Past 12 Hours) Vital Signs Temp Pulse Resp BP Pulse Ox 01/24/20 07:30 36.8 C 59 L 18 134/69 96 01/23/20 23:00 36.7 C 76 18 136/79 96 01/23/20 22:14 70 20 128/64 98 01/23/20 21:39 67 20 137/70 97 Laboratory Results 01/24/20 01/24/20 01/24/20 Range/Units 05:13 05:13 04:51 WBC 10.52 (4.8-10.8) K/uL RBC 4.11 L (4.2-5.4) M/uL Hgb 13.0 (12.0-16.0) g/dL Hct 39.3 (37-47) % MCV 95.6 (80-100) fL MCH 31.6 (25-34) pg MCHC 33.1 (32-36) g/dL RDW Std Deviation 45.9 (36.4-46.3) fL RDW Coeff of Petr 13.1 (11.5-14.5) % Plt Count 261 (130-400) K/uL MPV 9.7 (7.4-10.4) fL Immature Gran % (Auto) 0.2 % Neut % (Auto) 76.8 % Lymph % (Auto) 13.8 % Banks % (Auto) 9.0 % Eos % (Auto) 0.1 % Baso % (Auto) 0.1 % Neut # (Auto) 8.08 H (1.4-6.5) K/uL Lymph # (Auto) 1.45 (1.2-3.4) K/uL Banks # (Auto) 0.95 H (0.11-0.59) K/uL Eos # (Auto) 0.01 (0-0.5) K/uL Baso # (Auto) 0.01 (0-0.2) K/uL Immature Gran # (Auto) 0.02 (0.00-0.02) K/uL PT (9.0-12.0) Seconds INR (0.9-1.1) APTT (21.0-31.0) Seconds PTT Ratio Sodium 145 (136-145) mmol/L Potassium 3.2 L (3.5-5.1) mmol/L Chloride 114 H (98-107) mmol/L Carbon Dioxide 24 (21-32) mmol/L Anion Gap 7.0 (3-11) BUN 8 (7-18) mg/dl Creatinine 0.45 L (0.6-1.2) mg/dl Est Cr Clr Drug Dosing 89.2 ml/min Est GFR ( Amer) 107.4 Est GFR (Non-Af Amer) 92.7 BUN/Creatinine Ratio 16.6 (10-20) Glucose 85 (70-99) mg/dl Lactate (0.4-2.0) mmol/L Calcium 8.3 L (8.5-10.1) mg/dl Magnesium (1.8-2.4) mg/dl Total Bilirubin (0.2-1) mg/dl AST (15-37) U/L ALT (12-78) U/L Alkaline Phosphatase (45-117) U/L Troponin I (0-0.045) ng/ml Total Protein (6.4-8.2) gm/dl Albumin (3.4-5.0) gm/dl Globulin (2.5-4.0) gm/dl Albumin/Globulin Ratio (0.9-2) Procalcitonin (0-0.5) ng/ml Urine Color Urine Appearance (Clear) Urine pH (4.5-7.5) Ur Specific [place] (1.000-1.030) Urine Protein (Negative) Urine Glucose (UA) (Negative) Urine Ketones (Negative) Urine Blood (Negative) Urine Nitrite (Negative) Urine Bilirubin (Negative) Urine Urobilinogen (Negative) Ur Leukocyte Esterase (Negative) Urine WBC (Auto) (0-5) /hpf Urine RBC (Auto) (0-4) /hpf U Hyaline Cast (Auto) (0-5) /lpf U Epithel Cells (Auto) (0-5) /lpf Urine Bacteria (Auto) (Negative) Nasal Screen MRSA (PCR) Negative (Negative) 01/23/20 01/23/20 01/23/20 Range/Units 23:03 19:25 18:53 WBC (4.8-10.8) K/uL RBC (4.2-5.4) M/uL Hgb (12.0-16.0) g/dL Hct (37-47) % MCV (80-100) fL MCH (25-34) pg MCHC (32-36) g/dL RDW Std Deviation (36.4-46.3) fL RDW Coeff of Petr (11.5-14.5) % Plt Count (130-400) K/uL MPV (7.4-10.4) fL Immature Gran % (Auto) % Neut % (Auto) % Lymph % (Auto) % Banks % (Auto) % Eos % (Auto) % Baso % (Auto) % Neut # (Auto) (1.4-6.5) K/uL Lymph # (Auto) (1.2-3.4) K/uL Banks # (Auto) (0.11-0.59) K/uL Eos # (Auto) (0-0.5) K/uL Baso # (Auto) (0-0.2) K/uL Immature Gran # (Auto) (0.00-0.02) K/uL PT (9.0-12.0) Seconds INR (0.9-1.1) APTT (21.0-31.0) Seconds PTT Ratio Sodium (136-145) mmol/L Potassium (3.5-5.1) mmol/L Chloride (98-107) mmol/L Carbon Dioxide (21-32) mmol/L Anion Gap (3-11) BUN (7-18) mg/dl Creatinine (0.6-1.2) mg/dl Est Cr Clr Drug Dosing ml/min Est GFR ( Amer) Est GFR (Non-Af Amer) BUN/Creatinine Ratio (10-20) Glucose (70-99) mg/dl Lactate 1.5 2.3 H* (0.4-2.0) mmol/L Calcium (8.5-10.1) mg/dl Magnesium (1.8-2.4) mg/dl Total Bilirubin (0.2-1) mg/dl AST (15-37) U/L ALT (12-78) U/L Alkaline Phosphatase (45-117) U/L Troponin I (0-0.045) ng/ml Total Protein (6.4-8.2) gm/dl Albumin (3.4-5.0) gm/dl Globulin (2.5-4.0) gm/dl Albumin/Globulin Ratio (0.9-2) Procalcitonin (0-0.5) ng/ml Urine Color Yellow Urine Appearance Clear (Clear) Urine pH 6.0 (4.5-7.5) Ur Specific [place] 1.022 (1.000-1.030) Urine Protein Negative (Negative) Urine Glucose (UA) Negative (Negative) Urine Ketones 1+ H (Negative) Urine Blood Negative (Negative) Urine Nitrite Positive A (Negative) Urine Bilirubin Negative (Negative) Urine Urobilinogen Negative (Negative) Ur Leukocyte Esterase 1+ H (Negative) Urine WBC (Auto) 10-30 H (0-5) /hpf Urine RBC (Auto) 0-4 (0-4) /hpf U Hyaline Cast (Auto) 5-10 H (0-5) /lpf U Epithel Cells (Auto) 5-10 H (0-5) /lpf Urine Bacteria (Auto) 4+ H (Negative) Nasal Screen MRSA (PCR) (Negative) 01/23/20 01/23/20 01/23/20 Range/Units 18:33 18:33 18:33 WBC 11.34 H (4.8-10.8) K/uL RBC 4.81 (4.2-5.4) M/uL Hgb 15.3 (12.0-16.0) g/dL Hct 46.0 (37-47) % MCV 95.6 (80-100) fL MCH 31.8 (25-34) pg MCHC 33.3 (32-36) g/dL RDW Std Deviation 45.1 (36.4-46.3) fL RDW Coeff of Petr 13.0 (11.5-14.5) % Plt Count 308 (130-400) K/uL MPV 10.1 (7.4-10.4) fL Immature Gran % (Auto) 0.2 % Neut % (Auto) 89.1 % Lymph % (Auto) 8.3 % Banks % (Auto) 2.3 % Eos % (Auto) 0.0 % Baso % (Auto) 0.1 % Neut # (Auto) 10.11 H (1.4-6.5) K/uL Lymph # (Auto) 0.94 L (1.2-3.4) K/uL Banks # (Auto) 0.26 (0.11-0.59) K/uL Eos # (Auto) 0.00 (0-0.5) K/uL Baso # (Auto) 0.01 (0-0.2) K/uL Immature Gran # (Auto) 0.02 (0.00-0.02) K/uL PT 11.0 (9.0-12.0) Seconds INR 1.0 (0.9-1.1) APTT 26.0 (21.0-31.0) Seconds PTT Ratio 0.9 Sodium 139 (136-145) mmol/L Potassium 3.7 (3.5-5.1) mmol/L Chloride 109 H (98-107) mmol/L Carbon Dioxide 26 (21-32) mmol/L Anion Gap 4.0 (3-11) BUN 9 (7-18) mg/dl Creatinine 0.70 (0.6-1.2) mg/dl Est Cr Clr Drug Dosing 57.4 ml/min Est GFR ( Amer) 92.9 Est GFR (Non-Af Amer) 80.1 BUN/Creatinine Ratio 12.9 (10-20) Glucose 135 H (70-99) mg/dl Lactate (0.4-2.0) mmol/L Calcium 9.4 (8.5-10.1) mg/dl Magnesium 2.4 (1.8-2.4) mg/dl Total Bilirubin 0.4 (0.2-1) mg/dl AST 19 (15-37) U/L ALT 27 (12-78) U/L Alkaline Phosphatase 48 (45-117) U/L Troponin I < 0.015 (0-0.045) ng/ml Total Protein 8.5 H (6.4-8.2) gm/dl Albumin 4.1 (3.4-5.0) gm/dl Globulin 4.4 H (2.5-4.0) gm/dl Albumin/Globulin Ratio 0.9 (0.9-2) Procalcitonin (0-0.5) ng/ml Urine Color Urine Appearance (Clear) Urine pH (4.5-7.5) Ur Specific [place] (1.000-1.030) Urine Protein (Negative) Urine Glucose (UA) (Negative) Urine Ketones (Negative) Urine Blood (Negative) Urine Nitrite (Negative) Urine Bilirubin (Negative) Urine Urobilinogen (Negative) Ur Leukocyte Esterase (Negative) Urine WBC (Auto) (0-5) /hpf Urine RBC (Auto) (0-4) /hpf U Hyaline Cast (Auto) (0-5) /lpf U Epithel Cells (Auto) (0-5) /lpf Urine Bacteria (Auto) (Negative) Nasal Screen MRSA (PCR) (Negative) 01/23/20 Range/Units 18:33 WBC (4.8-10.8) K/uL RBC (4.2-5.4) M/uL Hgb (12.0-16.0) g/dL Hct (37-47) % MCV (80-100) fL MCH (25-34) pg MCHC (32-36) g/dL RDW Std Deviation (36.4-46.3) fL RDW Coeff of Petr (11.5-14.5) % Plt Count (130-400) K/uL MPV (7.4-10.4) fL Immature Gran % (Auto) % Neut % (Auto) % Lymph % (Auto) % Banks % (Auto) % Eos % (Auto) % Baso % (Auto) % Neut # (Auto) (1.4-6.5) K/uL Lymph # (Auto) (1.2-3.4) K/uL Banks # (Auto) (0.11-0.59) K/uL Eos # (Auto) (0-0.5) K/uL Baso # (Auto) (0-0.2) K/uL Immature Gran # (Auto) (0.00-0.02) K/uL PT (9.0-12.0) Seconds INR (0.9-1.1) APTT (21.0-31.0) Seconds PTT Ratio Sodium (136-145) mmol/L Potassium (3.5-5.1) mmol/L Chloride (98-107) mmol/L Carbon Dioxide (21-32) mmol/L Anion Gap (3-11) BUN (7-18) mg/dl Creatinine (0.6-1.2) mg/dl Est Cr Clr Drug Dosing ml/min Est GFR ( Amer) Est GFR (Non-Af Amer) BUN/Creatinine Ratio (10-20) Glucose (70-99) mg/dl Lactate (0.4-2.0) mmol/L Calcium (8.5-10.1) mg/dl Magnesium (1.8-2.4) mg/dl Total Bilirubin (0.2-1) mg/dl AST (15-37) U/L ALT (12-78) U/L Alkaline Phosphatase (45-117) U/L Troponin I (0-0.045) ng/ml Total Protein (6.4-8.2) gm/dl Albumin (3.4-5.0) gm/dl Globulin (2.5-4.0) gm/dl Albumin/Globulin Ratio (0.9-2) Procalcitonin < 0.05 (0-0.5) ng/ml Urine Color Urine Appearance (Clear) Urine pH (4.5-7.5) Ur Specific [place] (1.000-1.030) Urine Protein (Negative) Urine Glucose (UA) (Negative) Urine Ketones (Negative) Urine Blood (Negative) Urine Nitrite (Negative) Urine Bilirubin (Negative) Urine Urobilinogen (Negative) Ur Leukocyte Esterase (Negative) Urine WBC (Auto) (0-5) /hpf Urine RBC (Auto) (0-4) /hpf U Hyaline Cast (Auto) (0-5) /lpf U Epithel Cells (Auto) (0-5) /lpf Urine Bacteria (Auto) (Negative) Nasal Screen MRSA (PCR) (Negative) Medications Administered Current Inpatient Medications Acetaminophen (Acetaminophen 500 Mg Tab) 1,000 mg PO Q8 PRN PRN Reason: As Needed for Fever or Pain Stop: 02/22/20 22:48 Al Hydrox/Mg Hydrox/Simethicone (Aluminum/Magnesium/Simeth (Maalox Max) 30 Ml Udc) 15 ml PO Q6H PRN PRN Reason: Indigestion Stop: 02/22/20 22:48 Donepezil HCl (Donepezil Hcl 10 Mg Tab) 10 mg PO HS [facility] Stop: 02/23/20 20:59 Enoxaparin Sodium (Enoxaparin Inj 40 Mg/0.4 Ml Syr) 40 mg SQ Q24H [facility] Stop: 02/23/20 08:59 Last Admin: 01/24/20 08:22 Dose: 40 mg Documented by: Ertapenem 1,000 mg/ Sodium (Chloride) 60 mls @ 100 mls/hr IV Q24H [facility] Stop: 02/03/20 00:00 Last Infusion: 01/24/20 00:29 Dose: Infused Documented by: Melatonin (Melatonin 3 Mg Tab) 3 mg PO HS [facility] Stop: 02/23/20 20:59 Quetiapine Fumarate (Quetiapine Fumarate 100 Mg Tablet) 100 mg PO HS [facility] Stop: 02/23/20 20:59 Quetiapine Fumarate (Quetiapine Fumarate 100 Mg Tablet) 100 mg PO QAM [facility] Stop: 02/23/20 08:59 Last Admin: 01/24/20 08:24 Dose: 100 mg Documented by: Sertraline HCl (Sertraline Hcl 100 Mg Tablet) 100 mg PO DAILY [facility] Stop: 02/23/20 08:59 Last Admin: 01/24/20 08:23 Dose: 100 mg Documented by: Trazodone HCl (Trazodone Hcl 50 Mg Tab) 50 mg PO HS [facility] Stop: 02/23/20 20:59 Resident Activity Tracking Resident Involvement: Resident Care Provided Care Provided: Adult Hospital Medicine
--- NOTE | 2020-01-24 19:51 | Billing Data ---
Date of Service January 24, 2020 Coding Level of Care Code 85720 Subseq Hosp Care Lvl 2
--- NOTE | 2020-01-24 20:21 | Electrocardiogram Report ---
Test Reason : Blood Pressure : / mmHG Vent. Rate : 067 BPM Atrial Rate : 067 BPM P-R Int : 176 ms QRS Dur : 114 ms QT Int : 428 ms P-R-T Axes : 076 -27 126 degrees QTc Int : 452 ms Normal sinus rhythm Incomplete left bundle block Left ventricular hypertrophy with repolarization abnormality Abnormal ECG When compared with ECG of 14-JAN-2020 16:51, No significant change was found Confirmed by John Mcgregor ([id number] on 01/24/2020 8:21:08 PM [facility] Confirmed By:John Mcgregor
[2020-01-24] MEDS: DONEPEZIL HCL 10 MG TAB PO SCH (20:25)
[2020-01-24] MEDS: traZODone HCL 50 MG TAB PO SCH (20:25)
[2020-01-24] MEDS: MELATONIN 3 MG TAB PO SCH (20:25)
[2020-01-25] MEDS: ERTAPENEM SODIUM 1,000 MG in SODIUM CHLORIDE 0.9% 50 ML IV SCH (00:03)
--- NOTE | 2020-01-25 03:18 | Billing Data ---
Date of Service January 25, 2020 Coding Level of Care Code 33009 Initial Inpt Care Lvl 2
[2020-01-25 05:58] LABS: Basophils # (auto) 0.02 K/uL (0-0.2); Basophils % (auto) 0.2 %; Eosinophils # (auto) 0.08 K/uL (0-0.5); Hematocrit (blood only) 39.2 % (37-47); Hemoglobin 12.7 g/dL (12.0-16.0); Immature Granulocytes # (auto) 0.02 K/uL (0.00-0.02); Immature Granulocytes % (auto) 0.2 %; Lymphocytes # (auto) 1.55 K/uL (1.2-3.4); Lymphocytes % (auto) 19.3 %; Mean Corpuscular Hemoglobin 31.4 pg (25-34); Mean Corpuscular Hgb Conc 32.4 g/dL (32-36); Mean Platelet Volume 9.3 fL (7.4-10.4); Monocytes % (auto) 9.9 %; Neutrophils # (auto) 5.58 K/uL (1.4-6.5); Neutrophils % (auto) 69.4 %; Platelet Count 234 K/uL (130-400); RDW Coefficient of Variation 13.3 % (11.5-14.5); RDW Standard Deviation 47.3 fL (36.4-46.3); Red Blood Count 4.04 M/uL (4.2-5.4); White Blood Count 8.05 K/uL (4.8-10.8)
[2020-01-25 06:26] LABS: BUN Creatinine Ratio 18.2 (10-20); Calcium 8.1 mg/dl (8.5-10.1); Creatinine Clr Calc Pharmacy 89.2 ml/min; Est GFR (African American) 107.4; Est GFR (Non-African American) 92.7; Potassium 3.3 mmol/L (3.5-5.1)
[2020-01-25] MEDS: ENOXAPARIN INJ 40 MG/0.4 ML SYR SQ SCH (09:00)
[2020-01-25] MEDS: QUEtiapine FUMARATE 100 MG TABLET PO SCH ×2 (09:01→20:39)
[2020-01-25] MEDS: SERTRALINE HCL 100 MG TABLET PO SCH (09:01)
--- NOTE | 2020-01-25 10:16 | Hospitalist Progress Note ---
Date of Service January 25, 2020 Assessment & Plan (1) Urinary tract infection due to extended-spectrum beta lactamase (ESBL) producing Escherichia coli: Pt is an 84yo female with a PMHx of severe dementia, anxiety, depression, insomnia and a Hx of ESBL UTI who was admitted with concern for an unresolving UTI. UTI in the setting of Hx of ESBL infections -Pt was seen on 01/11 with an ESBL UTI, treated with one dose of fosfomycin -Per her son, [facility] staff notes they found pt "slumped over" at table -afebrile, nontachycardic, BP within normal limits -WBC 11k lactate mildly elevated, procalcitonin WNL on admission -Urine Cx demonstrating gram negative bacilli -- Pansensitive Klebsiella Pneumonia -Blood Cx x2 NGTD -Patient received 3 days of Ertapenem, will DC today due to initial low suspicion for UTI Dementia -continue home donepezil 10mg Insomnia -continue home melatonin 3mg and trazodone 50mg Depression -continue home trazodone 50mg, quetiapine 100mg BID, sertraline 100mg Weakness -Noted prior to patients hospital stay -Per granddaughter patient was able to ambulate with a walker and feed herself at [facility] -PT/OT ordered Dispo: Med/Surg FEN: Regular minced and moist DVT: Lovenox 40u Code: DNR/DNI (2) Dementia: (3) Insomnia: (4) Depression: (5) Anxiety: Admission and Anticipated Discharge Date Admission Date: January 23, 2020 Supervising Physician Co-Signing Physician Notes Resident Physician Supervision Note: I independently interviewed and examined the patient and verified the lewis history and physical, reviewed labs and image studies, discussed the case with the resident Dr. Reed and agree with the findings and care plan. Subjective Patient evaluated at the bedside this morning while eating breakfast. Aid was assisting patient in cutting up food and feeding, though patient eating with gusto. Patient noted that she was no longer having any pain and over all was feeling well. She denied any dysuria, but noted a possible history of increased frequency. Review of Systems Constitutional: + weakness; no fever and no chills Respiratory: no cough, no dyspnea and no pain on inspiration Cardiovascular: no chest pain, no dyspnea on exertion and no palpitations Gastrointestinal: no abdominal pain, no nausea and no vomiting Genitourinary: + urinary frequency (possible increase, though patient unsure); no dysuria Physical Exam Constitutional: well developed and well nourished; no acute distress Eyes: normal visual michaels by confrontation ENMT: external ear and nose normal, oropharynx normal Neck: trachea midline, no thyromegaly Respiratory: normal respiratory effort, lungs clear to auscultation Cardiovascular: Rate/Rhythm: regular rate and regular rhythm Heart Sounds: + murmur (2/6 SHAWN) Gastrointestinal (Abdomen): normal bowel sounds, soft, nontender, no hepatosplenomegaly Psychiatric: Orientation: alert, oriented to person and cooperative; + not oriented to place and + not oriented to time Eye Contact: + fair eye contact Results & Data Results & Data ([facility]) Vital Signs (Past 12 Hours) Vital Signs Temp Pulse Resp BP Pulse Ox 01/25/20 07:16 37.1 C 74 16 144/70 H 96 01/24/20 23:00 37.0 C 55 L 16 124/68 95 Resident Activity Tracking Resident Involvement: Resident Care Provided Care Provided: Adult Hospital Medicine
[2020-01-25] MEDS ORDERED: POTASSIUM CHLORIDE CRTAB 20 MEQ TABCR PO STA (10:33)
[2020-01-25] MEDS: DONEPEZIL HCL 10 MG TAB PO SCH (20:38)
[2020-01-25] MEDS: MELATONIN 3 MG TAB PO SCH (20:38)
[2020-01-25] MEDS: traZODone HCL 50 MG TAB PO SCH (20:39)
--- NOTE | 2020-01-26 07:05 | Hospitalist Progress Note ---
Date of Service January 26, 2020 Assessment & Plan (1) Urinary tract infection due to extended-spectrum beta lactamase (ESBL) producing Escherichia coli: Pt is an 84yo female with a PMHx of severe dementia, anxiety, depression, insomnia and a Hx of ESBL UTI who was admitted with concern for an unresolving UTI. UTI in the setting of Hx of ESBL infections -Pt was seen on 01/11 with an ESBL UTI, treated with one dose of fosfomycin -Per her son, [facility] staff notes they found pt "slumped over" at table -afebrile, nontachycardic, BP within normal limits -WBC 11k lactate mildly elevated, procalcitonin WNL on admission -Urine Cx demonstrating gram negative bacilli -- Pansensitive Klebsiella Pneumonia -Blood Cx x2 NGTD -Patient received 3 days of Ertapenem, will DC today due to initial low suspicion for UTI Dementia -continue home donepezil 10mg Insomnia -continue home melatonin 3mg and trazodone 50mg Depression -continue home trazodone 50mg, quetiapine 100mg BID, sertraline 100mg Weakness -Noted prior to patients hospital stay -Per granddaughter patient was able to ambulate with a walker and feed herself at [facility] -PT/OT ordered Dispo: Med/Surg FEN: Regular minced and moist DVT: Lovenox 40u Code: DNR/DNI (2) Dementia: (3) Insomnia: (4) Depression: (5) Anxiety: Admission and Anticipated Discharge Date Admission Date: January 23, 2020 Results & Data Results & Data ([facility]) Vital Signs (Past 12 Hours) Vital Signs Temp Pulse Resp BP Pulse Ox 01/25/20 23:35 37.1 C 63 14 139/61 94
[2020-01-26 07:28] LABS: Basophils # (auto) 0.02 K/uL (0-0.2); Basophils % (auto) 0.3 %; Eosinophils # (auto) 0.09 K/uL (0-0.5); Eosinophils % (auto) 1.4 %; Hematocrit (blood only) 40.5 % (37-47); Hemoglobin 12.9 g/dL (12.0-16.0); Immature Granulocytes # (auto) 0.01 K/uL (0.00-0.02); Immature Granulocytes % (auto) 0.2 %; Lymphocytes # (auto) 1.61 K/uL (1.2-3.4); Lymphocytes % (auto) 24.9 %; Mean Corpuscular Hemoglobin 31.2 pg (25-34); Mean Corpuscular Hgb Conc 31.9 g/dL (32-36); Mean Corpuscular Volume 97.8 fL (80-100); Mean Platelet Volume 9.9 fL (7.4-10.4); Monocytes # (auto) 0.78 K/uL (0.11-0.59); Monocytes % (auto) 12.1 %; Neutrophils # (auto) 3.95 K/uL (1.4-6.5); Neutrophils % (auto) 61.1 %; Platelet Count 251 K/uL (130-400); RDW Coefficient of Variation 13.2 % (11.5-14.5); RDW Standard Deviation 47.3 fL (36.4-46.3); Red Blood Count 4.14 M/uL (4.2-5.4); White Blood Count 6.46 K/uL (4.8-10.8)
[2020-01-26 08:25] LABS: BUN Creatinine Ratio 14.2 (10-20); Calcium 8.8 mg/dl (8.5-10.1); Est GFR (African American) 100.5; Est GFR (Non-African American) 86.7; Potassium 3.9 mmol/L (3.5-5.1)
[2020-01-26] MEDS: ENOXAPARIN INJ 40 MG/0.4 ML SYR SQ SCH (09:05)
[2020-01-26] MEDS: QUEtiapine FUMARATE 100 MG TABLET PO SCH (09:05)
[2020-01-26] MEDS: SERTRALINE HCL 100 MG TABLET PO SCH (09:06)
--- NOTE | 2020-01-26 09:29 | Discharge Summary ---
Date of Service January 26, 2020 Admission HPI Per Admitting Provider Pt is an 84yo female with a PMHx of severe dementia, anxiety, depression, insomnia and a Hx of ESBL UTI who was admitted with concern for an unresolving UTI. Son is present at the bedside and provides most of the history. Son states that mom was treated in the ED a few weeks ago for a UTI with an "oral pill". States he was contacted by [facility] where the patient resides as today they found her slumped over at the table. He states that with her recurrent UTIs and severe dementia, she is usually not at baseline. States they did not report fevers, but felt that she was sometimes cold and clammy. States his mom never smoked and has a family Hx of dementia. She worked as a [employer] for most of her life and currently resides at [facility]. Admission Exam Per Admitting Provider General:Awake, nonverbal, No acute distress laying in bed Skin: No noted rashes or bruises Psych: cannot be determined Neuro: moves extremities HEENT: NC/AT Chest: Nontender to palpation. CV: RRR, Normal s1, s2. blowing murmur appreciated Resp: Breath sounds clear bilaterally, no increased effort of breathing. Abdomen: Soft, nontender, nondistended. No guarding. Extremities: ++ edema in lower extremities bilaterally. Principal Diagnosis UTI, Weakness Discharge Exam Constitutional well developed and well nourished; no acute distress Eyes normal visual michaels by confrontation ENMT external ear and nose normal, oropharynx normal Neck trachea midline, no thyromegaly Respiratory normal respiratory effort, lungs clear to auscultation Cardiovascular Rate/Rhythm: regular rate and regular rhythm Heart Sounds: + murmur (2/6 SHAWN) Gastrointestinal (Abdomen) normal bowel sounds, soft, nontender, no hepatosplenomegaly Psychiatric Orientation: alert, oriented to person and cooperative; + not oriented to place and + not oriented to time Eye Contact: + fair eye contact Discharge Data Allergies Allergy/AdvReac Type Severity Reaction Status Date / Time Sulfa (Sulfonamide Allergy Unknown Unknown Verified 01/23/20 21:02 Antibiotics) Consultations 01/23/20 20:38 ED Decision to Admit Stat Hospital Course (1) Urinary tract infection due to extended-spectrum beta lactamase (ESBL) producing Escherichia coli: Pt is an 84yo female with a PMHx of severe dementia, anxiety, depression, insomnia and a Hx of ESBL UTI who was weak and slumped over, got was admitted with concern for an unresolving UTI. Probable UTI in the setting of Hx of ESBL infections -Pt was seen on 01/11 with an ESBL UTI, treated with one dose of fosfomycin -Per her sonAlayna staff notes they found pt "slumped over" at table -afebrile, nontachycardic, BP within normal limits while inpatient -WBC 11k lactate mildly elevated, procalcitonin WNL on admission -Urine Cx -- Pansensitive Klebsiella Pneumonia -Blood Cx x2 NGTD -Presentation possibly sec to bacteriuria but low suspicion. Possibly ?dehydrated from poor oral intake/medication side effect -Patient received 3 days of Ertapenem, discontinued due to initial low suspicion for UTI Dementia -continued home donepezil 10mg Insomnia -continued home melatonin 3mg and trazodone 50mg Depression -continued home trazodone 50mg, quetiapine 100mg BID, sertraline 100mg Weakness -Noted prior to patients hospital stay -Per granddaughter patient was able to ambulate with a walker and feed herself at [facility] -PT/OT ordered - Recommended outpatient therapy -- Script signed for PT/OT Dispo: [facility] FEN: Regular minced and moist Code: DNR/DNI (2) Dementia: (3) Insomnia: (4) Depression: (5) Anxiety: Total Time Total Time Spent Total Time Spent (In Minutes): see attending attestation Discharge Plan Discharge Items Patient Disposition: Personal Jail Reason For Visit: ESBL UTI Discharge Diagnosis: UTI, Weakness Activity: Per Instructions section Non-emergency contact: Primary Care Provider Call non-emergency contact if: you have any medication questions and your symptoms worsen Follow-up/Referrals: Vandana Amos MD [Primary Care Provider] - 02/01/20 10:00 am Diet: Regular Addtl Attending Provider Instructions: Pt is an 84yo female with a PMHx of severe dementia, anxiety, depression, insomnia and a Hx of ESBL UTI who was admitted with concern for an unresolving UTI. UTI in the setting of Hx of ESBL infections -Pt was seen on 01/11 with an ESBL UTI, treated with one dose of fosfomycin -Per her sonAlayna staff notes they found pt "slumped over" at table -afebrile, nontachycardic, BP within normal limits while inpatient -WBC 11k lactate mildly elevated, procalcitonin WNL on admission -Urine Cx demonstrating gram negative bacilli -- Pansensitive Klebsiella Pneumonia -Blood Cx x2 NGTD -Patient received 3 days of Ertapenem, discontinued due to initial low suspicion for UTI -No need for further antibiotics upon discharge. Dementia -continued home donepezil 10mg Insomnia -continued home melatonin 3mg and trazodone 50mg Depression -continued home trazodone 50mg, quetiapine 100mg BID, sertraline 100mg Weakness -Noted prior to patients hospital stay -Per granddaughter patient was able to ambulate with a walker and feed herself at [facility] -PT/OT ordered - Recommended outpatient therapy -- Script signed for PT/OT Dispo: [facility] FEN: Regular minced and moist Code: DNR/DNI Pending Studies at Discharge: No Stand-Alone Forms: CompassMD, Smoking Cessation Skilled Items Patient informed of condition?: Yes DNR: Yes Discharge Level of Care: Other Communicable Disease: No Discharge Prognosis: Stable Lines: None Urinary Catheter: No Medications and DC Order Prescriptions: Continued acetaminophen 325 mg tablet 650 mg PO TID MDD 3 GMS APAP/24 HOURS Qty: 60 RF: 0 melatonin 3 mg tablet 3 mg PO HS RF: 0 donepezil 10 mg tablet 10 mg PO HS RF: 0 quetiapine 100 mg tablet 100 mg PO HS RF: 0 quetiapine 25 mg tablet 100 mg PO QAM RF: 0 cyanocobalamin (vitamin B-12) [Vitamin B-12] 1,000 mcg Tablet 2,000 mcg PO DAILY RF: 0 sertraline 50 mg tablet 100 mg PO DAILY RF: 0 trazodone 50 mg tablet 50 mg PO HS RF: 0 acetaminophen 325 mg Tablet 325 mg PO Q4H MDD 3 GMS APAP/24 HOURS PRN (Reason: Pain, Mild) RF: 0 Discharge Orders: Discharge Order (Routine); Ordered 01/26/20 Ordered By: Anjel Dos Santos/Other Patient Handouts: Preventing Deep Vein Thrombosis Admission Data Admit Date/Time: 01/23/20 21:31 Attending Provider: Josefina Rojas Admit Provider: Moira Rojas Primary Care Provider: Vandana Amos Other Providers: Zhao Danielle ; Ramin Vivar Other Interventions: Discharge Summary Assessment (RN) Last Done: 01/26/20 11:45 Supervising Physician Co-Signing Physician Notes Resident Physician Supervision Note: I independently interviewed and examined the patient and verified the lewis history and physical, reviewed labs and image studies, discussed the case with the resident Dr. Reed and agree with the findings and care plan. Resident Activity Tracking Resident Involvement: Resident Care Provided Care Provided: Adult Hospital Medicine
== END 2020-01-26 15:45 | disposition home or self-care (01) ==
LOC: ED 18:01 → SUATTDRO 21:31 → 3W 21:31 → INTOOBSV 21:31 → 3W 22:19